=== PATIENT | male | born 1930 | race Asian ===

== ENCOUNTER 2018-07-03 17:46 | Inpatient (IN) | payer OTHER, MEDICAID ==
[~2018-07-03] VITALS: Ht 172.7 cm; Wt 49.0 kg
[2018-07-03 17:59] VITALS: Ht 172.7 cm; Wt 49.0 kg
[2018-07-03 19:28] LABS: microscopic required? YES; urine erythrocyte 3+ (NEGATIVE)
[2018-07-03 19:38] LABS: CALCIUM 7.8 mg/dL (8.5-10.1); CARBON DIOXIDE 31.3 mmol/L (21-32); CHLORIDE SERUM 94 mmol/L (98-107); CREATININE SERUM 0.8 mg/dL (0.7-1.3); GLUCOSE SERUM 110 mg/dL (74-106); POTASSIUM SERUM 4.3 mmol/L (3.5-5.1); SODIUM SERUM 127 mmol/L (136-145)
[2018-07-03 19:43] LABS: PLATELET COUNT 408 x10^3mcL (130-400)
[2018-07-03 19:51] LABS: ALBUMIN 2.4 g/dL (3.4-5.0); ALKALINE PHOSPHATASE 83 U/L (46-116); ALT/SGPT 18 U/L (16-63); AST/SGOT 21 U/L (15-37); BILIRUBIN TOTAL 1.61 mg/dL (0.20-1.00); FREE T4 2.05 ng/dL (0.76-1.46); LIPASE 139 IU/L (73-393); TOTAL PROTEIN, SERUM 5.9 g/dL (6.4-8.2)
[2018-07-03 20:29] LABS: BAND NEUTROPHIL 10 % (0-10); BASOPHIL 0 % (0-2); MONOCYTE 4 % (0-7); SEGMENTED NEUTROPHILS 84 % (37-75); rbc morphology (normal/abnorm) NORMAL (NORMAL)
[2018-07-03 20:30] LABS: PLATELET MORPHOLOGY PLATELETS INCREASED
[2018-07-03 21:24] LABS: MAGNESIUM 1.7 mg/dL (1.8-2.4); PHOSPHOROUS 3.2 mg/dL (2.5-4.9)
[2018-07-03 21:34] LABS: T3 TOTAL 0.57 ng/mL
[2018-07-03 21:36] LABS: FREE T4 2.1 ng/dL (0.76-1.46); FREE THYROXINE INDEX 4.1 ug/dL (1.4-4.5); T4(THYROXINE) 8.7 ug/dL (4.7-13.3)
[2018-07-03] MEDS ORDERED: ALENDRONATE SOD70 M2 (22:34)
[2018-07-03] MEDS ORDERED: LIPI10 PO (22:34)
[2018-07-03] MEDS ORDERED: PULMICORT0.5 MG/2 M (22:35)
[2018-07-03] MEDS ORDERED: CLOPIDOGREL75 M1 PO (22:35)
[2018-07-03] MEDS ORDERED: FINASTERIDE5 M1 PO (22:35)
[2018-07-03] MEDS ORDERED: DIGOXIN0.125 M1 PO (22:35)
[2018-07-03] MEDS ORDERED: LOSARTAN POTASS25 M1 PO (22:35)
[2018-07-03] MEDS ORDERED: ASPIRIN ADULT L81 M5 PO (22:41)
[2018-07-03] MEDS ORDERED: LATANOPROST2.5 ML OU (22:44)
[2018-07-03] MEDS ORDERED: TAMSULOSIN HYD0.4 M1 PO (22:46)
[2018-07-03] MEDS ORDERED: XARELTO15 M1 PO (22:47)
[2018-07-03 23:49] VITALS: BP 153/75
[2018-07-04 01:32] VITALS: BP 153/75
[2018-07-04 05:46] VITALS: BP 136/59
[2018-07-04 07:35] LABS: PLATELET COUNT 357 x10^3mcL (130-400); RED CELL DISTRIBUTION WIDTH 12.9 % (11.5-14.5)
[2018-07-04 07:43] LABS: CALCIUM 7.3 mg/dL (8.5-10.1); CARBON DIOXIDE 26.7 mmol/L (21-32); CHLORIDE SERUM 99 mmol/L (98-107); CREATININE SERUM 0.5 mg/dL (0.7-1.3); GLUCOSE SERUM 95 mg/dL (74-106); MAGNESIUM 1.6 mg/dL (1.8-2.4); POTASSIUM SERUM 3.7 mmol/L (3.5-5.1); SODIUM SERUM 132 mmol/L (136-145)
[2018-07-04 08:39] VITALS: BP 155/68
[2018-07-04 12:56] LABS: BAND NEUTROPHIL 1 % (0-10); BASOPHIL 0 % (0-2); MONOCYTE 2 % (0-7); SEGMENTED NEUTROPHILS 97 % (37-75)
[2018-07-04 12:57] LABS: PLATELET MORPHOLOGY PLATELETS NORMAL; rbc morphology (normal/abnorm) NORMAL (NORMAL)
[2018-07-04 13:07] VITALS: BP 137/70
[2018-07-04 16:40] VITALS: BP 138/66
[2018-07-04 20:56] VITALS: BP 146/68
[2018-07-05 06:25] VITALS: BP 150/77
[2018-07-05 08:05] LABS: BASOPHIL % 0.4 % (0-2); PLATELET COUNT 393 x10^3mcL (130-400); RED CELL DISTRIBUTION WIDTH 12.7 % (11.5-14.5)
[2018-07-05 08:09] VITALS: BP 146/72
[2018-07-05 08:24] LABS: CALCIUM 7.3 mg/dL (8.5-10.1); CARBON DIOXIDE 28.9 mmol/L (21-32); CHLORIDE SERUM 98 mmol/L (98-107); CREATININE SERUM 0.5 mg/dL (0.7-1.3); GLUCOSE SERUM 87 mg/dL (74-106); POTASSIUM SERUM 3.4 mmol/L (3.5-5.1); SODIUM SERUM 131 mmol/L (136-145)
[2018-07-05 12:25] VITALS: BP 137/62
[2018-07-05 16:30] VITALS: BP 136/68
[2018-07-05 19:39] VITALS: BP 155/74
[2018-07-06 05:15] VITALS: BP 160/83
[2018-07-06 05:20] VITALS: BP 140/78
[2018-07-06 06:12] LABS: PLATELET COUNT 378 x10^3mcL (130-400); RED CELL DISTRIBUTION WIDTH 13.1 % (11.5-14.5)
[2018-07-06 06:22] LABS: BASOPHIL % 0 % (0-2)
[2018-07-06 06:24] LABS: CALCIUM 7.6 mg/dL (8.5-10.1); CARBON DIOXIDE 30.5 mmol/L (21-32); CHLORIDE SERUM 97 mmol/L (98-107); CREATININE SERUM 0.4 mg/dL (0.7-1.3); GLUCOSE SERUM 97 mg/dL (74-106); POTASSIUM SERUM 3.3 mmol/L (3.5-5.1); SODIUM SERUM 133 mmol/L (136-145)
[2018-07-06 07:53] VITALS: BP 150/88
[2018-07-06 12:09] VITALS: BP 148/94
[2018-07-06 15:56] VITALS: BP 143/87
[2018-07-06 20:14] VITALS: BP 141/80
[2018-07-07 05:47] VITALS: BP 140/69
[2018-07-07 07:16] LABS: BASOPHIL % 0.3 % (0-2); PLATELET COUNT 387 x10^3mcL (130-400)
[2018-07-07 07:40] LABS: CALCIUM 7.6 mg/dL (8.5-10.1); CARBON DIOXIDE 29.5 mmol/L (21-32); CHLORIDE SERUM 98 mmol/L (98-107); CREATININE SERUM 0.5 mg/dL (0.7-1.3); GLUCOSE SERUM 95 mg/dL (74-106); MAGNESIUM 2.1 mg/dL (1.8-2.4); POTASSIUM SERUM 3.4 mmol/L (3.5-5.1); SODIUM SERUM 133 mmol/L (136-145)
[2018-07-07 08:00] VITALS: BP 173/97
[2018-07-07 10:00] VITALS: BP 145/61
[2018-07-07 18:12] VITALS: BP 185/86
[2018-07-07 18:47] VITALS: BP 134/69
[2018-07-07 20:42] VITALS: BP 139/70
[2018-07-08] VITALS (8 sets, daily range): BP systolic 111–167; BP diastolic 56–79
[2018-07-08 07:20] LABS: BASOPHIL % 0.2 % (0-2); PLATELET COUNT 354 x10^3mcL (130-400); RED CELL DISTRIBUTION WIDTH 13.2 % (11.5-14.5)
[2018-07-08 07:32] LABS: CALCIUM 7.9 mg/dL (8.5-10.1); CARBON DIOXIDE 28.5 mmol/L (21-32); CHLORIDE SERUM 98 mmol/L (98-107); CREATININE SERUM 0.5 mg/dL (0.7-1.3); GLUCOSE SERUM 75 mg/dL (74-106); POTASSIUM SERUM 3.3 mmol/L (3.5-5.1); SODIUM SERUM 134 mmol/L (136-145)
[2018-07-09] VITALS (7 sets, daily range): BP systolic 109–178; BP diastolic 57–80
[2018-07-09 06:28] LABS: CALCIUM 8.2 mg/dL (8.5-10.1); CARBON DIOXIDE 32.7 mmol/L (21-32); CHLORIDE SERUM 99 mmol/L (98-107); CREATININE SERUM 0.5 mg/dL (0.7-1.3); GLUCOSE SERUM 76 mg/dL (74-106); POTASSIUM SERUM 3.1 mmol/L (3.5-5.1); SODIUM SERUM 138 mmol/L (136-145)
[2018-07-09 06:41] LABS: BASOPHIL % 0.4 % (0-2); PLATELET COUNT 387 x10^3mcL (130-400); RED CELL DISTRIBUTION WIDTH 13.6 % (11.5-14.5)
[2018-07-10 05:35] VITALS: BP 154/72
[2018-07-10 09:00] VITALS: BP 158/82
[2018-07-10] MEDS ORDERED: AUG500 PO (10:28)
[2018-07-10] MEDS ORDERED: LEV500 PO (10:29)
[2018-07-10 12:00] VITALS: BP 138/71
[2018-07-10 13:36] VITALS: BP 138/71
== END 2018-07-10 15:44 | DRG 871 ==
LOC: ED 17:46 → DU 20:57
PROVIDERS: Emergency Medicine; Internal Medicine; ADMIT Internal Medicine
DX: A41.9 Sepsis, unspecified organism (principal); J69.0 Pneumonitis due to inhalation of food and vomit; N17.0 Acute kidney failure with tubular necrosis; E43 Unspecified severe protein-calorie malnutrition; E87.1 Hypo-osmolality and hyponatremia; I69.354 Hemiplegia and hemiparesis following cerebral infarction affecting left non-dominant side; Z68.1 Body mass index [BMI] 19.9 or less, adult; B95.2 Enterococcus as the cause of diseases classified elsewhere; N40.0 Benign prostatic hyperplasia without lower urinary tract symptoms; E78.5 Hyperlipidemia, unspecified; I48.91 Unspecified atrial fibrillation; Z79.82 Long term (current) use of aspirin; Z79.01 Long term (current) use of anticoagulants; Z95.5 Presence of coronary angioplasty implant and graft
CPT/HCPCS: 83880; 84439; 87804; 92526-GN; 92610; 97110-GP; 97116-GP; 97530-GP; J0360; J0456; J2060; J2543; J3370; J3475; J3480; J7030; J7040; J7050; J7620; J7626; Q0092

== ENCOUNTER 2018-07-22 04:36 | Inpatient (IN) | payer OTHER, MEDICAID ==
[2018-07-22] VITALS (7 sets, daily range): BP systolic 94–137; BP diastolic 48–63; Ht 175.3 cm; Wt 41.7 kg
[~2018-07-22] VITALS: Ht 175.3 cm; Wt 41.7 kg
[~2018-07-22 04:36] MED LIST: ALENDRONATE SOD70 M2; ASPIRIN ADULT L81 M5 PO; AUG500 PO; CLOPIDOGREL75 M1 PO; DIGOXIN0.125 M1 PO; FINASTERIDE5 M1 PO; LATANOPROST2.5 ML OU; LEV500 PO; LIPI10 PO; LOSARTAN POTASS25 M1 PO; PULMICORT0.5 MG/2 M; TAMSULOSIN HYD0.4 M1 PO; XARELTO15 M1 PO
--- NOTE | 2018-07-22 04:45 | NUR ---
PT PRESENTED TO ED VIA AMBULANCE FROM [facility] FOR SOB, TACHYCARDIA, AND HYPOXEMIA X 1 DAY. MEDIC STATES TRELLIS STAFF REPORTED PT FEVER. PER MEDIC PT RECENTLY DX WITH PNEUMONIA. PER MEDIC PT WAS DESATING TO 76 ON RA. UPON ARRIVAL TO ED PT PLACED ON 4L NC. PT IS AWAKE, ALERT, AND ORIENTED. ANSWERS APPROPRIATELY BUT VERY SOFT SPOKEN. PT APPEARS VERY THIN WITH VARIOUS AREAS OF ECCHYMOSIS NOTED TO BUE, BLE, AND TRUNK. BREATHING EVEN, SHALLOW, WITH NO APPARENT USE OF ACCESSORY MUSCLES. FAMILY AT BEDSIDE. MSE COMPLETED BY DR HAWK. WILL CONTINUE TO MONITOR.
--- NOTE | 2018-07-22 04:50 | NUR ---
LAB AT BEDSIDE.
--- NOTE | 2018-07-22 04:55 | NUR ---
XRAY AT BEDSIDE
[2018-07-22 05:16] LABS: BASOPHIL % 0.2 % (0-2)
[2018-07-22 05:17] LABS: RED CELL DISTRIBUTION WIDTH 15.2 % (11.5-14.5)
[2018-07-22 05:18] LABS: PLATELET COUNT 516 x10^3mcL (130-400)
[2018-07-22 05:37] LABS: CK-MB 0.6 ng/mL (0-3.6)
[2018-07-22 05:56] LABS: microscopic required? YES
[2018-07-22 05:57] LABS: urine erythrocyte TRACE (NEGATIVE)
[2018-07-22 05:58] LABS: CALCIUM 9.7 mg/dL (8.5-10.1); CHLORIDE SERUM 95 mmol/L (98-107); CREATININE SERUM 0.9 mg/dL (0.7-1.3); GLUCOSE SERUM 120 mg/dL (74-106); POTASSIUM SERUM 4.7 mmol/L (3.5-5.1); SODIUM SERUM 136 mmol/L (136-145)
[2018-07-22 06:04] LABS: ALKALINE PHOSPHATASE 93 U/L (46-116); ALT/SGPT 16 U/L (16-63); AST/SGOT 20 U/L (15-37); BILIRUBIN TOTAL 1.9 mg/dL (0.20-1.00)
[2018-07-22 06:05] LABS: ALBUMIN 3.3 g/dL (3.4-5.0)
--- NOTE | 2018-07-22 06:19 | NUR ---
REPORT CALLED TO LUCERO MARIE
--- NOTE | 2018-07-22 06:25 | NUR ---
PT TRANSFERED TO ROOM AT THIS TIME IN NAD. BREATHING EVEN AND UNLABORED BUT SHALLOW. PT AWAKE AND ALERT, FAMILY VERBALIZED UNDERSTANDING OF PLAN OF CARE. PT TRANSFERED VIA RBLANKA ACCOMPANIED BY ME MARIE AND EMT TYSON. FLUIDS ENDORSED TO LUCERO MARIE. BELONGINGS SENT WITH PT.
--- NOTE | 2018-07-22 06:30 | NUR ---
RECEIVED FROM ED VIA STRETCHER,PUT IN ROOM 240 B AND MADE COMFORTABLE.TELE 11 ST[address]SON AT BEDSIDE.
--- NOTE | 2018-07-22 06:49 | NUR ---
MRSA NARES COLLECTED,WILL SEND TO LAB.
--- NOTE | 2018-07-22 06:52 | NUR ---
PATIENT JUST SETTLED IN BED,SON IN LAW FRIDA WILL STAY FOR ADMIT NEXT SHIFT.
--- NOTE | 2018-07-22 07:01 | NUR ---
IVF JUST TKO NOW.WILL ENDORSE TO NEXT SHIFT TO BE ADMITTED.
--- NOTE | 2018-07-22 07:15 | NUR ---
RECEIVED PATIENT FROM FRANK BARKER, PATIENT NEW ADMIT. PATIENT IN BED AT THIS TIME, FACE MASK ON AT 5 LPM. NO COMPLAINTS AT THIS TIME, NO SIGNS OF PAIN. SON FRIDA AT BEDSIDE. CALL LIGHT IN REACH.
[2018-07-22 07:26] LABS: MAGNESIUM 1.7 mg/dL (1.8-2.4); PHOSPHOROUS 3.4 mg/dL (2.5-4.9)
[2018-07-22 07:33] LABS: CHOLESTEROL/HDL RATIO 1.9
[2018-07-22 08:23] LABS: FREE THYROXINE INDEX 3.3 ug/dL (1.4-4.5)
[2018-07-22 08:24] LABS: FREE T4 1.81 ng/dL (0.76-1.46)
--- NOTE | 2018-07-22 10:30 | NUR ---
RECEIVED AWAKE WITH HOB EELVATED AT 45 DEGREES. SKIN WARM AND DRY TO TOUCH . C/O BACK PAIN ON SCALE 3/10. PT CALIMED BEARABLE AT THIS TIME, NO NEED FOR PAIN MEDICATION INTERPRETED BY SPOUSE AT BEDSIDE. APPARENTLY WATCHINGM TV . PLACED CALL LIGHT WITHIN REACH, INSTRUCTED TO CALL FOR ANY ASSISTANCE NEEDED AND VERBALIZED UNDERSTANDING.
[2018-07-22 12:01] LABS: T3 TOTAL 0.73 ng/mL
--- NOTE | 2018-07-22 12:20 | NUR ---
PATIENT IN BED RESTING, DOING RESPIRATORY TREATMENT. NO SIGNS OF SOB OR PAIN. FAMILY AT BEDSIDE, EXPLAINED USE OF FURTHER ANTIBIOTICS. CALL LIGHT IN REACH, WILL CONTINUE TO MONITOR.
--- NOTE | 2018-07-22 15:34 | NUR ---
PT TITRATED OFF SIMPLE MASK TO 3LNC. SPO2 ON 3NC 95%. PT IN NAD. WILL CONTINUE TO MONITOR. RN NOTIFIED.
--- NOTE | 2018-07-22 15:52 | NUR ---
PATIENT IN BED, W NO SIGNS OF SOB OR RESPIRATORY DISTRESS. SIDE PAIN HAS DIMINISHED FROM PRN TYLENOL 650 MG PO. CALL LIGHT IN REACH, FAMILY AT BEDSIDE.
--- NOTE | 2018-07-22 18:56 | NUR ---
PATIENT IN BED, NO SIGNS OF SOB. FAMILY AT BEDSIDE, WILL ENDORSE TO ONCOMING NURSE. CALL LIGHT IN REACH.
--- NOTE | 2018-07-22 19:30 | NUR ---
RECEIVED WITH HOB ELEVATED AT 45 DEGREES. SKIN WARM AND DRY TO TOUCH. RESPIRATION EVEN AND UNLABORED. WITH INTERMITTENT BACK PAIN , WITH 3/10 PAIN LEVEL , CLAIMED BEARABLE AT THIS TIME. PAIN MEDICATION WAS ADMINISTERED at around 1800. ON TELE #[address] AT 120/MIN. DENIES ANY CHEST PAIN/DISCOMFORT. WILL CONTINUE TO MONITOR.
--- NOTE | 2018-07-22 22:00 | NUR ---
ALL DUE MEDICATIONS GIVENAND WELL TOLERATED. ALL PO MEDICATIONS CRUSHED AND MIX WITH APPLE SAUCE, APPARENTLY PT TOLERATED PROCEDURE WELL.
[2018-07-23] VITALS: BP 106/54
--- NOTE | 2018-07-23 | NUR ---
CONTINUES ON ATB IVPB WITHOUT ADVERSE REACTION NOTED. TOLERATED PUDDING , NO S/S OF ASPIRATION NOTED. TURNED AND RESPOSITIONED Q 2HRS WITH TOTAL ASSIST.
--- NOTE | 2018-07-23 03:15 | NUR ---
PT SLEEPING. VISUAL CHECKED AT INTERVALS. BED IN LOWEST POSITION. HOB ELEVATED AT 45 DEGREES AT ALL TIMES.
[2018-07-23 05:15] VITALS: BP 108/51
--- NOTE | 2018-07-23 06:04 | NUR ---
INCONTIENT OF BLADDER FUCNTION. PARTIAL BED BATH GIVEN. CONTINUES MARTINA TB IVPB FOR MANAGEMENT OF PNEUMONIA. NO ADVERSE REACTION NOTED. KEPT CLEAN AND DRY. ALL NEEDS ATTENDED.
[2018-07-23 06:59] LABS: BASOPHIL % 0.2 % (0-2); PLATELET COUNT 326 x10^3mcL (130-400)
--- NOTE | 2018-07-23 07:15 | NUR ---
AAO X1-2 SLOW TO ANSWER.NO SIGNS OF PAIN/DISCOMFORT.LUNG SOUND DIM ON THE BASES.ON SR-ST ON THE MONITPR.IV SALINE LOCKED.Q 2 HOUR TURN IMPLEMENTED.CALL LIGHT WITHIN REACH.FREQUENT CHECKS IMPLEMENTED.WILL CONTINUE TO MONITOR PT.
[2018-07-23 07:40] LABS: CALCIUM 8.2 mg/dL (8.5-10.1); CARBON DIOXIDE 30.1 mmol/L (21-32); CHLORIDE SERUM 102 mmol/L (98-107); CREATININE SERUM 0.7 mg/dL (0.7-1.3); GLUCOSE SERUM 83 mg/dL (74-106); MAGNESIUM 1.8 mg/dL (1.8-2.4); PHOSPHOROUS 2.8 mg/dL (2.5-4.9); POTASSIUM SERUM 3.6 mmol/L (3.5-5.1); SODIUM SERUM 137 mmol/L (136-145)
[2018-07-23 08:37] LABS: RED CELL DISTRIBUTION WIDTH 15.4 % (11.5-14.5)
[2018-07-23 09:43] VITALS: BP 111/51
--- NOTE | 2018-07-23 13:30 | NUR ---
INFORMED SON IN LAW THAT RN WENT TO HAVE EYEDROP VERIFIED BY THE PHARMACIST. PER PHARMACY NEEDED THE ACTUAL LABEL OF THE MEDICINE. SON IN LAW WILL BRING THE LABEL FROM HOME.
[2018-07-23 14:10] VITALS: BP 111/54
--- NOTE | 2018-07-23 15:50 | NUR ---
PT WAS SEEN FOR DYSPHAGIA. PT WAS ABLE TO SAFELY SWALLOW PUREE DIET WITH HONEY THICK LIQUID. PT HAD DELAY IN SWALLOW AND MIGHT BE AT RISK OF ASPIRATION RECOMMENDATION BARRIUM SWALLOW STUDY. PUREE DIET WITH HONEY THICK LIQUID.
--- NOTE | 2018-07-23 15:50 | NUR ---
SPEECH THERAPIST CAME TO SEE PT.INFORMED RN TO KEEP PT ON PUREED DIET AND NECTAR THICK LIQUIDS.ALSO TO ORDER BARIUM SWLLOW TOMORROW.TALKED TO INFORMED HER OF WHAT THE SPEECH THERAPIST SUGGESTED. WILL ORDER BARIUM SWALLOW FOR TOMORROW
[2018-07-23 17:23] VITALS: BP 100/49
--- NOTE | 2018-07-23 18:00 | NUR ---
IV LEAKING.REINSERTED 22 G ON LFA BY CHARGE NURSE ARIANA.
--- NOTE | 2018-07-23 18:20 | NUR ---
CLEANED PT.NOTED SOME ECCHYMOSIS ON BUTTOCKS.APPLIED Z-GUARD AND PUT AIR MATRESS.
--- NOTE | 2018-07-23 18:39 | NUR ---
NO SIGNIFICANT CHANGE NOTED.WILL ENDORSE TO NEXT SHIFT.
--- NOTE | 2018-07-23 19:51 | NUR ---
PT A/A/O X2, FAMILY AT BEDSIDE. PT DENIES DIZZINESS AND HEADACHE. BREATH SOUNDS DIMINISHED LEFT SIDE. BREATHING EVEN AND UNLABORED ON 4L NC, SPO2 94%. DENIES CHEST PAIN AND PRESSURE. BOWEL SOUNDS ACTIVE. NO C/O N/V AND ABD PAIN. IV SALINE LOCK ON THE LEFT FOREARM. ON AIR MATTRESS. MADE PT COMFORTABLE. PLACED CALL LIGHT WITH IN REACH. WILL CONTINUE TO MONITOR.
[2018-07-23 19:57] VITALS: BP 121/64
--- NOTE | 2018-07-24 00:57 | NUR ---
PT RESTING WITH EYES CLOSED. NO DISTRESS AND DISCOMFORT NOTED. WILL CONTINUE TO MONITOR.
[2018-07-24 04:55] VITALS: BP 134/65
--- NOTE | 2018-07-24 06:45 | NUR ---
PT QUIET AND RESTING. NO SIGNIFICANT CHANGES NOTED. WILL CONTINUE TO MONITOR.
[2018-07-24 06:59] LABS: BASOPHIL % 0.1 % (0-2); PLATELET COUNT 365 x10^3mcL (130-400)
[2018-07-24 07:13] LABS: RED CELL DISTRIBUTION WIDTH 15.2 % (11.5-14.5)
--- NOTE | 2018-07-24 07:30 | NUR ---
PT ENDORSE TO ME THIS MORNING LAYING IN BED RESTING, AA/O X2 . BREATHING EVEN AND UNLABORED ON ON 4L NC, NO ACUTE RESP DISTRESS OR SOB NOTED. RT PROTOCAL. TELE 11 ST, HR 105 NOTED, DENIES ANY CP OR PRESSURE. PULSES PRESENT, CURRENLY ON XARELTO FOR HX OF AFIB. PENDING A XR VIDEO SWALLOW SPEECH THIS AM. INCONT. LAST BM 07/22. FALL RISK DUE TO GEN WEAKNESS, AIR MATTRESS, HEEL PROTECTORS APPLIED TO BOTH FEET. IV TO THE LFA INTACT AND PATENT. HEPLOCKED. NO REDNESS OR SWELLING NOTED. CALL LIGHT IN REACH. BED IN LOW POSITION. BED ALARM ON. WILL CONTINUE PLAN OF CARE.
[2018-07-24 07:48] LABS: CALCIUM 8.2 mg/dL (8.5-10.1); CARBON DIOXIDE 29.9 mmol/L (21-32); CHLORIDE SERUM 102 mmol/L (98-107); CREATININE SERUM 0.6 mg/dL (0.7-1.3); GLUCOSE SERUM 87 mg/dL (74-106); PHOSPHOROUS 2.5 mg/dL (2.5-4.9); POTASSIUM SERUM 3.5 mmol/L (3.5-5.1); SODIUM SERUM 139 mmol/L (136-145)
[2018-07-24 09:16] VITALS: BP 114/88
[2018-07-24 09:28] VITALS: BP 138/86
--- NOTE | 2018-07-24 12:30 | NUR ---
SPOKE TO SAURAV GOMEZ [facility] [place], [place] TO EPHRAIM LAZAR IV
--- NOTE | 2018-07-24 14:22 | NUR ---
Initial Nutrition Assessment- 240T/B SI, RUSSELL IA HR Dx: Pneumonia PMHx: CVA, HTN, HLD, Afib, BPH PSHx: PCI Labs: (07/24) creat 0.6L, CA 8.2L, WBC 12.3H Meds: Lipitor, mucinex, zofran Diet: Puree diet/ nectar thick liquids PO Intake: (07/23) lunch: 75%, breakfast 50%, Ht: 175.26 cm (69") Wt: 41.73 kg (92#) BMI: 13.6 kg/m2 IBW: 178# (81 KG) %IBW: 52 UBW: unable to access Age: 87/M Food Allergies: NKFA Skin: ecchymosis to BUE Yordan: 14 Edema: none GI: Last BM: 07/21/18 Per H&P, Pt is a 87 year old male with past medical history CVA, Afib, HTN, HLD, BPH presents to the ED from group home with shortness of breath x 1 day. Pt was recently admitted two weeks ago for aspiration pneumonia and discharged to group home for continued care. RDN visit (07/24): Pt's daughter and answered questions since pt was busy with other healthcare professional. Pt's has questions about the current diet order which were clarified. Dietary recommendations were discussed and explained to pt's daughter. She verbalized understanding and did not have any questions at this time. Problem with: N: no V: no D: no C: no Problems with: Chewing/Swallowing: yes Current appetite: good Recent wt change: weighed 48.5 kg (07/09) %wt change: 14% x 2 weeks (significant) Vitamin/Supplement use: unknown Special diet at home: unknown Physical activity: none Education: Concept of puree/nectar thick liquid' diet order was explained to family. Estimated Nutritional Needs Based on ideal body weight 81 kg Energy: 4276-3115 kcal/d (30-35 kcal/kg- weight gain) Protein: 81-97 g/d (1.0-1.2g/kg)- geriatric maintenance and preservation of lean body mass Fluid: 6283-1132 ml/d (1 ml/kcal-fluid balance) or per doctor Nutrition Diagnosis 1. Malnutrition related to inadequate calorie/protein intake, frequent hospitalizations as evidenced by BMI 13.6 kg/m2. Intervention 1. Continue Puree/ [place] thick liquid diet. 2.Recommend Enusre Enlive TID along with thickener packets( to obtain nectar thick liquid consistency.) Monitor/Evaluate Goal: PO intake at least 75% of estimated needs Monitor: PO intake, Labs, GI function F/U in 3-5 days as moderate risk 5/2-07/29
--- NOTE | 2018-07-24 14:24 | NUR ---
1. Continue Puree/ [place] thick liquid diet. 2.Recommend Enusre Enlive TID along with thickener packets( to obtain nectar thick liquid consistency.)
--- NOTE | 2018-07-24 15:00 | NUR ---
ACCOMPANIED PATIENT TO FLUORO ROOM FOR VIDEO SWALLOW EXAM. SPO2=94% ON FIO2=4L/NC, BP 158/74, HEART RATE 100-104. EUPNEIC AT REST WITH HOB LOW MCKEE'S POSITION.
--- NOTE | 2018-07-24 15:16 | NUR ---
PT WAS SEEN FOR DYSPHAGIA SWALLOW STUDY. PT HAD MILD ASPIRATION FOR NTL. PT WAS ABLE TO SAFELY SWALLOW PUREE DIET WITH HONEY THICK LIQUID. DELAY IN SWALLOW WAS OBSERVED. RECOMMENDATION PUREE DIET WITH HONEY THICK LIQUID. SMALL BITES AND SIPS ONLY.
[2018-07-24 15:23] VITALS: BP 127/65
--- NOTE | 2018-07-24 16:59 | NUR ---
PT LAYING IN BED RESTING. REMAINS ON 4L NC, SATING AT 93-94% NO ACUTE RESP DISTRESS OR SOB NOTED. BY HIS SIDE. CALL LIGHT IN REACH. BED IN LOW POSITION. WILL CONTINUE PLAN OF CARE.
[2018-07-24 17:48] VITALS: BP 144/77
--- NOTE | 2018-07-24 17:51 | NUR ---
PT DAUGHTER CALLED, EXPLAINED THE NEW RECOMMENDATION DIET/ SHE AGREED.
--- NOTE | 2018-07-24 18:24 | NUR ---
NO ACUTE CHANGES AT THIS TIME. NO ACUTE RESP DISTRESS OR SOB NOTED/ REMAINS ON 4L NC SATING AT 93 %/ CURRENTLY AT A 90 DEG, ASSISTING IN FEEDING/ REEXPALINED THE IMPORTANCE OF FEEDING PT VERY SLOWLY WITH SMALL SIPS AND BITES, AND DAUGHTER BOTH AGREED. IV TO THE LFA INTACT AND PATENT/ HEPLOCKED, NO REDNESS OR SWELLING NOTED. WILL ENDORSE TO INCOMING RN.
--- NOTE | 2018-07-24 20:00 | NUR ---
RECEIVED PT IN BED, ALERT AND ORIENTED. ABLE TO FOLLOW SOME COMMANDS. FAMILY AT THE BEDSIDE. RESP. EVEN AND UNLABORED. 02 AT 4L/MIN VIA NC, SOUMYA. WELL. SAT. 96% AT THIS TIME. ST , HR 102 AT THIS TIME. DENIES CP OR ANY DISCOMFORT AT THIS TIME. HL TO LFA, INTACT AND PATENT. ON AIR MATTRESS, WITH BLANCHABLE REDNESS TO BUTTOCKS, TURNED AND REPOSITIONED FOR COMFORT, Z GUARD APPLIED. CALL LIGHT WITHIN REACH. WILL CONTINUE TO MONITOR.
[2018-07-24 21:06] VITALS: BP 138/73
--- NOTE | 2018-07-25 03:08 | NUR ---
RESTING QUIETLY IN BED WITH EYES CLOSED, APPEARS ASLEEP. EASILY AROUSABLE. RESP. EVEN AND UNLABORED. [address], SOUMYA. WELL. HOB ELEVATED. NO ACUTE DISTRESS NOTED.CALL LIGHT WITHIN REACH. WILL CONTINUE TO MONITOR.
--- NOTE | 2018-07-25 06:03 | NUR ---
AFEBRILE AND VITAL SIGNS STABLE. RESP. EVEN AND UNLABORED. [address], NO ACUTE DISTRESS NOTED. NO SIGNIFICANT CHANGE NOTED IN PT,S CONDITION. DUE MEDS GIVEN ORDERED, SOUMYA. WELL. INCONT. OF URINE, CLEANED AND KEPT COMFORTABLE.NO COMPLAINTS NOTED. ALL NEEDS ATTENDED TO . WILL CONTINUE TO MONITOR.
[2018-07-25 06:05] VITALS: BP 134/76
[2018-07-25 06:21] LABS: BASOPHIL % 0.4 % (0-2)
[2018-07-25 06:37] LABS: PLATELET COUNT 402 x10^3mcL (130-400); RED CELL DISTRIBUTION WIDTH 15.8 % (11.5-14.5)
--- NOTE | 2018-07-25 07:30 | NUR ---
PT ENDORSE TO ME THIS MORNING. LAYING IN BED RESTING AT 40 DEG. REMAINS ON 4 LNC, NO ACUTE RESP DISTRESS OR SOB NOTED/ LUNGS DIM TO LEFT SIDE. PT SUCTIONS SELF WHEN NEEDED. AA/O X3/ IS ABLE TO FOLLOW SIMPLE COMMANDS. TELE 11 NSR HR 97. PULSES PRESENT, NO EDEMA NOTED. BOWEL SOUNDS ACTIVE IN ALL FOUR QUADS. INCONT. BED BOUND, REMAINS ON AIR MATTRESS, TURN Q 2 HRS. BLANCHABLE TO BUTTOCKS, APPLYING ZG, DARRYN. IV TO THE LFA INTACT AND PATENT. NO REDNESS OR SWELLING NOTED. CALL LIGHT IN REACH. BED IN LOW POSITION. WILL CONTINUE TO MONITOR.
[2018-07-25 09:36] VITALS: BP 118/58
[2018-07-25 13:47] VITALS: BP 110/54
--- NOTE | 2018-07-25 14:00 | NUR ---
PT SITTING UP IN BED AT 90 DEG / TOLERATED 40% OF HIS LUNCH. NO ACUTE RESP DISTRESS OR SOB NOTED/ DENIES ANY CP OR DISCOMFORT. WILL CONTINUE TO MONITOR.
--- NOTE | 2018-07-25 16:12 | NUR ---
PHYSICAL THERAPY DAILY NOTES CO-SIGN All documentation done by the Director [employer] for 07/25/18 has been reviewed. I agree with the documentation. Reviewed/Co-Signed by: Lindsay Frausto PT Documentation Done by:JUSTINA ESPOSITO PTA
[2018-07-25 16:37] VITALS: BP 129/61
--- NOTE | 2018-07-25 18:10 | NUR ---
FAMILY AT BEDSIDE. PT SITTING UP IN BED RESTING/ REMAINS AT 90 DEG POSITION. NO ACUTE RESP DISTRESS OR SOB NOTED, REMAINS ON 4L NC SATING AT 94-98 %. DENIES ANY CP OR PRESSSURE AT THIS TIME. EDUCATED THE FAMILY THE IMPORTANCE AND FEEDING PT VERY SLOW, SMALL BITS AND SIPS WITH ADDED THICKEND, THEY AGREEDED. WILL CONTINUE TO MONITOR.
--- NOTE | 2018-07-25 18:36 | NUR ---
NO ACUTE CHANGES AT THIS TIME. NO ACUTE RESP DISTRESS OR SOB NOTED. FAMILY AT BEDSIDE. IV TO THE LFA INTACT AND PATENT/ HEPLOCKED/ NO REDNESS OR SWELLING NOTED. WILL ENDORSE TO INCOMING RN.
--- NOTE | 2018-07-25 20:00 | NUR ---
RECEIVED PT IN BED, RESTING IN BED, ALERT AND ORIENTED. FAMILY AT THE BEDSIDE. [place] , ABLE TO FOLLOW COMMANDS. RESP. EVEN AND UNLABORED, 02 AT 4L/MIN VIA NC, SAT. WELL. HOB ELEVATED. NO ACUTE DISTRESS NOTED. AFEBRILE AND VITAL SIGNS STABLE. ST ON THE MONITOR, DENIES CP OR ANY DISCOMFORT AT THIS TIME. INCONT. OF URINE, CLEANED AND KEPT COMFORTABLE. HL INTACT AND PATENT. CALL LIGHT WITHIN REACH. WILL CONTINUE TO MONITOR.
[2018-07-25 20:24] VITALS: BP 132/63
--- NOTE | 2018-07-26 01:00 | NUR ---
INCONT. OF SOFT MED. STOOL,CLEANED AND REPOSITIONED FOR COMFORT. CALL LIGHT WITHIN REACH. WILL CONTINUE TO MONITOR.
--- NOTE | 2018-07-26 03:40 | NUR ---
EYES CLOSED, APPEARS ASLEEP, EASILY AROUSABLE. [address], RESP. EVEN AND UNLABORED. NO ACUTE DISTRESS NOTED. WILL CONTINUE TO MONITOR.
[2018-07-26 05:31] VITALS: BP 124/50
--- NOTE | 2018-07-26 06:26 | NUR ---
AFEBRILE AND VITAL SIGNS STABLE.RESP. EVEN AND UNLABORED. [address], SOUMYA. WELL. NO SOB OR DISTRESS NOTED. DUE MEDS GIVEN ORDERED, SOUMYA. WELL. HL INTACT AND PATENT. TURNED AND REPOSITIONED Q2HRS AND PRN.ALL NEEDS ATTENDED TO. WILL ENDORSE TO INCOMING NURSE.
[2018-07-26 08:52] VITALS: BP 122/64
--- NOTE | 2018-07-26 09:40 | NUR ---
AAO. DTR PRESENT, SUPPORTIVE. TELE # 11 SR. LUNGS DIMINISHED SOUNDING BILATERALLY. O2 SAT ON 3L NC 98% BS'S ACTIVE TIMES 4. PERIPHERAL PULSES PALPABLE. NO EDEMA. SKIN CDI, ANAL AREA WITH ERYTHEMA THAT IS BLANCHEABLE, INCONTINENT OF URINE AND WE ARE APPLYING Z GUARD. IV SITE LFA CDI. ON AIR MATTRESS. TURNING Q 2 HOURS. WITH HEEL PROTECTORS AND A PAD AT THE END OF BED TO PREVENT FOOT DROP.
--- NOTE | 2018-07-26 10:27 | NUR ---
HEEL LINING PASTER MAVERICK MCCULLOUGH AWARE THAT THE DIG IS BEING HELD UNTIL THE DIGOXIN LAB LEVEL RESULTS ARE AVAILABLE. ALSO SHE IS AWARE THAT THE MUCINEX WAS HELD, DUE TO THE PATIENT NEEDING HER PILLS CRUSHED, AND MUCINEX CANT BE CRUSHED, SHE SAID TO JUST HOLD IT FOR NOW.
[2018-07-26] MEDS ORDERED: MERREM IV1 GM IV (10:38)
[2018-07-26 12:47] VITALS: BP 122/64
[2018-07-26 13:49] VITALS: BP 144/72
--- NOTE | 2018-07-26 15:20 | NUR ---
GAVE REPORT TO NURSE MERCEDES AT 1514. THE MEDICAL TRANSPORT WILL ARRIVE BETWEEN [phone]. THE DTR SIGNED THE DISCHARGE INSTRUCTIONS AND TRANSFER ACKNOWLEDGEMENT.
[2018-07-26 16:47] VITALS: BP 123/65
--- NOTE | 2018-07-27 07:30 | NUR ---
PHYSICAL THERAPY DAILY NOTES CO-SIGN All documentation done by the [employer] Assembler for 07/27/18 has been reviewed. I agree with the documentation. Reviewed/Co-Signed by: Lindsay Frausto PT Documentation Done by:JUSTINA ESPOSITO PTA FOR 07/26/18
== END 2018-07-26 16:50 | DRG 871 ==
LOC: ED 04:36 → DU 05:23
PROVIDERS: Emergency Medicine; ADMIT Internal Medicine
DX: A41.9 Sepsis, unspecified organism (principal); J96.01 Acute respiratory failure with hypoxia; J69.0 Pneumonitis due to inhalation of food and vomit; E43 Unspecified severe protein-calorie malnutrition; Z68.1 Body mass index [BMI] 19.9 or less, adult; I48.91 Unspecified atrial fibrillation; E11.9 Type 2 diabetes mellitus without complications; E83.42 Hypomagnesemia; N40.0 Benign prostatic hyperplasia without lower urinary tract symptoms; E78.5 Hyperlipidemia, unspecified; Z86.73 Personal history of transient ischemic attack (TIA), and cerebral infarction without residual deficits
CPT/HCPCS: 84439; 85378; 87804; 92526-GN; 92610; 97110-GP; 97530-GP; J1956; J2543; J3370; J7030; J7620; J7626

== ENCOUNTER 2018-08-07 02:54 | Inpatient (IN) | payer OTHER, MEDICAID ==
[~2018-08-07] VITALS: Ht 175.3 cm; Wt 39.9 kg
[~2018-08-07 02:54] MED LIST changes: +MERREM IV1 GM IV
[2018-08-07 03:01] VITALS: Ht 175.3 cm; Wt 39.9 kg
--- NOTE | 2018-08-07 03:10 | NUR ---
PT BIB AMBULANCE FROM [facility] FOR C/O SOB. PT WAS RECENTLY DISCHARGED WITH PNEUMONIA. PER AMS PT O2 SAT WAS AT 85 EVEN ON THE MASK FOR THEM. PT HAS HX OF COPD, HTN, DM, AND AFIB. PT HAS DEEP AND RETRACTING BREATHES, BUT EQUAL. PT IS VERY MALNOURISHED AND CAN SEE ALL OF HIS RIBS AND LEG AND ARM BONES. PT IS CONNECTED TO CARDIAC AND PLETH OX. PT PUT ON NONREBREATHER AT 15L AT THIS TIME. PT SEEMS TO BE MORE COMFORTABLE. WILL CONTINUE TO MONITOR. RT AT BEDSIDE FOR STANDBY
[2018-08-07 03:32] LABS: PLATELET COUNT 285 x10^3mcL (130-400)
[2018-08-07 03:33] LABS: BASOPHIL % 0 % (0-2); RED CELL DISTRIBUTION WIDTH 16.8 % (11.5-14.5)
--- NOTE | 2018-08-07 03:35 | NUR ---
RT AT BEDSIDE FOR ABG
--- NOTE | 2018-08-07 03:37 | NUR ---
SON IN LAW AT BEDSIDE
--- NOTE | 2018-08-07 03:42 | NUR ---
MD HAWK AT BEDSIDE TO DISCUSS PLAN OF CARE WITH PT SON IN LAW AND GATHER MORE INFORMATION
--- NOTE | 2018-08-07 03:46 | NUR ---
PT SEEMS TO HAVE STABILIZED AND IS SATING IN THE 92% ON THE NON REBREATHER. THIS IS AN IMPROVEMENT FOR HIM PER MD AND PER FAMILY. PT FAMILY STATES HE SEEMS MORE ALERT THAN HE WAS LAST TIME HE WAS HERE FOR PNEUMONIA A FEW WEEKS AGO.
[2018-08-07 03:59] LABS: CALCIUM 9.2 mg/dL (8.5-10.1); CARBON DIOXIDE 34.7 mmol/L (21-32); CHLORIDE SERUM 103 mmol/L (98-107); CREATININE SERUM 0.9 mg/dL (0.7-1.3); GLUCOSE SERUM 148 mg/dL (74-106); POTASSIUM SERUM 3.7 mmol/L (3.5-5.1); SODIUM SERUM 142 mmol/L (136-145)
[2018-08-07 04:00] LABS: CK-MB 0.6 ng/mL (0-3.6)
[2018-08-07 04:04] LABS: ALKALINE PHOSPHATASE 94 U/L (46-116); ALT/SGPT 21 U/L (16-63); AST/SGOT 17 U/L (15-37); TOTAL PROTEIN, SERUM 7.2 g/dL (6.4-8.2)
--- NOTE | 2018-08-07 04:10 | NUR ---
PLACED PATIENT ONTO BIPAP POST ABG RESULTS. SETTINGS: 12/30 RATE 14 FIO2 100%. SON IN LAW AT BEDSIDE. PATIENT APPEARS COMFORTABLE WITH MASK. HR 138 SPO2 92 ALARMS VERIFIED: HIGH P 40 LOW P 2 LOW VE 2 HIGH RATE 50 LOW RATE 4
[2018-08-07 04:11] LABS: ALBUMIN 2.7 g/dL (3.4-5.0)
--- NOTE | 2018-08-07 05:08 | NUR ---
PT SEEMS TO BE MORE COMFORTABLE AT THIS TIME. PT OXYGENATION HAS IMPROVED WITH BIPAP AND PT WORK OF BREATHING HAS DECREASED.
[2018-08-07] MEDS ORDERED: TRAMADOL HCL50 MG (05:31)
--- NOTE | 2018-08-07 05:36 | NUR ---
PER REQUEST TOOK PATIENT OFF BIPAP XRAY SHOWS A POSSIBLE LOWER LEFT LOBE PNEUMO AND PATIENT WILL GO TO CT FOR A SCAN. PLACED PATIENT ONTO NONREBREATHER MASK. SPO2 92 HEART RATE 122.
--- NOTE | 2018-08-07 05:50 | NUR ---
PT TAKEN OFF OF BIPAP. PT NOW PLACED ON NON REBREATHER AT 8L
--- NOTE | 2018-08-07 05:59 | NUR ---
PT CLEANED AND CHANGED WELL PHOTO TAKEN OF WOUND ON COCCYX AREA. REDNESS AND BREAKDOWN VISIBLE. WOUND PHOTO PLACED IN PT CHART
--- NOTE | 2018-08-07 06:09 | NUR ---
PT RETURNED FROM CT
--- NOTE | 2018-08-07 07:15 | NUR ---
REPORT RECEIVED FROM PAULA MARIE.
--- NOTE | 2018-08-07 07:15 | NUR ---
REPORT GIVEN TO DENNISE MARIE
--- NOTE | 2018-08-07 07:32 | NUR ---
REPORT GIVEN TO JANE MARIE RESUMING CARE OF PT IN TELE FLOOR
--- NOTE | 2018-08-07 07:50 | NUR ---
PT TRANSPORTED TO TELE FLOOR VIA GURNEY ON PORTABLE CM ON 02 AT 4L. TYRA MARIE RESUMED CARE OF PT PTS SON IN LAW ACCOMPANIED PT. PT DC'D FROM ED AT THIS TIME IV SITE PATENT NO SIGN OF INFILTRATION NOTED.
--- NOTE | 2018-08-07 08:00 | NUR ---
RECEIVED PT FROM ED WITH CC SOB AND HYPOXIA. PT AAOX3, NON-VERBAL. HX CVA WITH LEFT SIDED WEAKNESS. RESP EVEN, SHALLOW ON 4L VIA NC, O2 SAT 90%. OXYGEN INCREASED TO 5L AND O2 SAT WENT UP TO 94%. PT WITH PRODUCTIVE COUGH, CLEAR PHLEGHM. PT DENIES PAIN. BLL DIMINISHED. BOWEL SOUNDS ACTIVE, SOFT, FLAT. PER SON-IN-LAW, PT'S LAST BM 08/06/18 AND LAST MEAL 08/06/18 DINNER TIME WITH POOR APPETITE. ASPIRATION PRECAUTIONS IN PLACE. IV TO R HAND, NO REDNESS OR SWELLING. GEN WEAKNESS, PT PLACED ON AIR MATTRESS AND TO BE TURNED Q2H. OPEN WOUND NOTED TO SACRAL AREA, Z-GUARD AND OPTIFOAM APPLIED. HOB ELEVATED. PT AND SON-IN-LAW ORIENTED TO ROOM AND SURROUNDINGS. BED IN LOW POSITION, CALL LIGHT WITHIN REACH. WILL CONTINUE TO MONITOR.
[2018-08-07 10:24] VITALS: BP 141/80
--- NOTE | 2018-08-07 11:50 | NUR ---
IV TO R HAND LEAKING, DC'D WITH CATHETER INTACT. NEW IV STARTED ON RFA 22G, FLUSHED WITH 10 ML NS.
[2018-08-07 13:31] VITALS: BP 125/63
[2018-08-07 15:06] LABS: UA SPECIFIC GRAVITY >=1.030 (1.005-1.035); microscopic required? YES; urine erythrocyte 2+ (NEGATIVE)
--- NOTE | 2018-08-07 15:19 | NUR ---
PT WAS SEEN FOR DYSPHAGIA. PT HAD BREATHINNG PATTERN CHANGE FOR HONEY THICK LIQUID AND PUREE DIET INDICATING S/S OF ASPIRATION. [facility] SWALLOW STUDEY IS RECOMMENDED.
[2018-08-07 15:28] VITALS: BP 125/63
--- NOTE | 2018-08-07 17:54 | NUR ---
PT IN NO ACUTE DISTRESS. RESP EVEN AND UNLABORED ON 5L NC. IVF INFUSING, NO REDNESS OR SWELLING TO IV SITE. HOB ELEVATED AT ALL TIMES. AT BEDSIDE. ON AIR MATTRESS. CALL LIGHT WITHIN REACH. WILL CONTINUE TO MONITOR.
[2018-08-07 18:06] VITALS: BP 114/59
--- NOTE | 2018-08-07 18:32 | NUR ---
TITRATED O2 TO 3L NC. SPO2:96%. NO ACUTE RESP DISTRESS NOTED. WILL CONT.TO MONITOR
--- NOTE | 2018-08-07 18:54 | NUR ---
PT RESTING IN BED. NO ACUTE DISTRESS. BREATHING EVEN AND UNLABORED ON 3L NC. NO C/O PAIN. TURNED Q2H. ON AIR MATTRESS. IVF INFUSING, NO REDNESS OR SWELLING NOTED. AT BEDSIDE. HOB ELEVATED. BED IN LOW POSITION, CALL LIGHT WITHIN REACH. WILL ENDORSE TO ONCOMING SHIFT.
--- NOTE | 2018-08-07 19:50 | NUR ---
RECEIVED PT FROM DAY SHIFT RN. PT AWAKE ALERT AND ORIENTED X3 PER FAMILY, LANGUAGE BARRIER. BREATHING EVEN AND UNLABORED, NC 3L/MIN NO SOB NOTED. HEAD OF BED ELEVATED. RT PROTOCOL. GENERALIZED WEAKNESS. ABD SOFT AND ROUND, ACTIVE BOWEL SOUNDS, DENIES ABD PAIN N/V. SACRUM WOUND COVERED WITH DRESSING, CDI. BILATERAL HEEL PROTECTORS IN PLACE. IV RFA PATENT, INFUSING WELL. FAMILY AT BEDSIDE. CALL BUTTON WITHIN REACH. REPOSITIONED PT AT THIS TIME. WILL CONTINUE TO MONITOR.
[2018-08-07 20:36] VITALS: BP 149/80
--- NOTE | 2018-08-08 | NUR ---
PT RESTING, BREATHING EVEN AND UNLABORED WITH NO SIGNS OF DISTRESS NTOED. IV PATENT, INFUSING WELL. SAFETY PRECAUTIONS IN PLACE. CALL BUTTON WITHIN REACH. WILL CONTINUE TO MONITOR.
--- NOTE | 2018-08-08 01:55 | NUR ---
PT RESTING, BREATHING EVEN AND UNLABORED NC 3L/MIN WITH NO SIGNS OF DISTRESS NTOED. IV PATENT, INFUSING WELL. SAFETY PRECAUTIONS IN PLACE. CALL BUTTON WITHIN REACH. WILL CONTINUE TO MONITOR.
--- NOTE | 2018-08-08 04:59 | NUR ---
PT SLEPT MOST OF THE NIGHT WITH NO SIGNS OF DISTRESS NOTED. NC 3L/MIN NO SOB NOTED, RT PROTOCOL. IV PATENT AND INFUSING WELL WITH NO SIGNS OF INFILTRATION. MEDICATED PER EMAR. PT DENIES ANY PAIN OR DISCOMFORT. REPOSITIONED EVERY TWO HOURS. CALL BUTTON WITHIN REACH. ASPIRATION PRECAUTIONS IN PLACE. SAFETY PRECAUTIONS IN PLACE. WILL CONTINUE TO MONITOR AND ENDORSE CARE TO DAY SHIFT RN.
[2018-08-08 05:19] VITALS: BP 156/81
[2018-08-08 07:29] LABS: PLATELET COUNT 274 x10^3mcL (130-400)
--- NOTE | 2018-08-08 07:29 | NUR ---
PT AWAKE NO SIGNS OF DISTRESS NOTED. ENDORSED CARE TO DAY SHIFT RN, ALL QUESTIONS ADDRESSED.
[2018-08-08 07:39] LABS: CALCIUM 8.4 mg/dL (8.5-10.1); CARBON DIOXIDE 29.7 mmol/L (21-32); CHLORIDE SERUM 111 mmol/L (98-107); CREATININE SERUM 0.6 mg/dL (0.7-1.3); GLUCOSE SERUM 70 mg/dL (74-106); POTASSIUM SERUM 3.2 mmol/L (3.5-5.1); SODIUM SERUM 150 mmol/L (136-145)
[2018-08-08 07:47] LABS: BASOPHIL % 0 % (0-2); RED CELL DISTRIBUTION WIDTH 16.4 % (11.5-14.5)
[2018-08-08 08:22] VITALS: BP 160/91
--- NOTE | 2018-08-08 09:18 | NUR ---
TITRATED O2 TO 5L NC. SPO2:99%. NO ACUTE RESP DISTRESS NOTED. WILL CONT.TO MONITOR
[2018-08-08 12:01] VITALS: BP 150/82
--- NOTE | 2018-08-08 12:30 | NUR ---
PT RESTING IN BED, AOX4, RESP EVEN AND UNLABORED ON NC AT 6L/MIN. NO ACUTE DISTRESS NOTED AT THIS TIME. HOB ELEVATED 30 DEGREES, BED IN LOWEST POSITION AND CALL LIGHT WITHIN REACH. FAMILY AT BEDSIDE. WILL CONTINUE TO MONITOR.
--- NOTE | 2018-08-08 12:48 | NUR ---
WOUND CARE EVALUATION NOTE: REASON FOR EVALUATION: LOW LANEY SCORE AND BUTTOCKS WOUND CLARIFICATION: NO PRESSURE ULCER TO SACRALCOCCYX AREA. SKIN ASSESSMENT DONE WITH THIS 87 Y/O MALE PT ADMITTED FROM HOME TO [facility] WITH INITIAL DX SOB. PAST MEDICAL HX INCLUDES HTN, COPD, A FIB, HTN, HLD, BPH AND RECENT CVA WITH LEST SIDE WEAKNESS. ALL ABOVE INFORMATION OBTAINED FROM ADMISSION H&P AND DAUGHTER. PT IS AWAKE. SKIN IS WARM AND DRY, BLE NO HAIR GROWTH, NO EDEMA. DORSAL PEDAL PULSES PRESENT AND NORMAL. CAPILLARY REFILLED < 2 SEC. X 10 TOES. INCONTINENT OF BOWEL AND BLADDER. PLAN OF CARE DISCUSSED WITH PRIMARY RN, PT, AND DAUGHTER. ALL VERBALIZES UNDERSTANDING. INTEGUMENTARY: -INCOTINENT ASSOCIATE DERMATITIS (IAD): INNER BUTTOCKS EXTENDED TO SACRALCOCCYX -PRESSUREINJURY SACRALCOCCYA STAGE 1 -BLANCHABLE REDNESS TO R/L HEELS, SKIN INTACT RECOMMENDATIONS: -KEEP SKIN DRY AND CLEAN AT ALL TIMES, PLEASE CHECK Q2H AND PRN FOR INCONTINENCY OF BOWEL AND BLADDER. - CLEANSE WITH WOUND CLEANSING SOLUTION AND APPLY Z GUARD TO INNER BUTTOCKS EXTENDED TO SACRALCOCCYX BID AND PRN IF SOILING -APPLY FORM DRESSING TO SACROCOCCY Q7 DAYS AND PRN IF SOILING PREVENTION -APPLY HEEL PROTECTOR TO RIGHT /LEFT HEELS AT ALL TIMES -OFFLOAD BILATERAL HEELS BY PLACING PILLOWS UNDER CALVES UNLESS OTHERWISE CONTRAINDICATED -PRESSURE REDISTRIBUTION SURFACE THERAPY -TURN AND REPOSITION Q2H, OFFLOAD SACRALCOCCYX AND BUTTOCKS BY TURNING RIGHT AND LEFT -CONTINUE TO FOLLOW RD RECOMMENDATIONS ALL ABOVE RECOMMENDATIONS DISCUSSED WITH PRIMARY RN. WILL FOLLOW UP PT Q7-10 DAYS. PLEASE CONTACT WOUND CARE NURSE FOR ANY QUESTION AND CHANGE OF WOUND CONDITION.
[2018-08-08 16:37] VITALS: BP 164/92
--- NOTE | 2018-08-08 17:23 | NUR ---
TITRATED O2 TO 4L NC. SPO2:96%. NO RESP ACUTE RESP DISTRESS NOTED. WILL MONITOR
--- NOTE | 2018-08-08 17:50 | NUR ---
PT RESTING IN BED, AOX4. WOUND CARE DONE AT THIS TIME. NONBLANCHABLE REDNESS TO SACRUM NOTED, PT DENIES PAIN. Z-GUARD AND OPTIFOAM APPLIED, DRESSING CDI. BILAT HEEL PROTECTORS IN PLACE. RESP EVEN AND UNLABORED ON NC AT 5L/MIN. IV TO RFA W/ NO SIGNS OF INFILTRATION, IVF INFUSING WELL. BED IN LOWEST POSITION AND CALL LIGHT WITHIN REACH. WILL ENDORSE TO ONCOMING NURSE.
--- NOTE | 2018-08-08 19:37 | NUR ---
RECEIVED PT FROM PREVIOUS SHIFT. PT SLEEPING, EASILY AWAKED WITH VERBAL STIMULI. NO S/S RESPIRATORY DISTRESS ON 5LNC. AT BEDSIDE. IV TO RFA PATENT, INFUSING NS AT 70 ML/HR WITH NO S/S OF INFILTRATION. CALL LIGHT WITHIN REACH, BED IN LOW POSITION. WILL CONTINUE TO MONITOR.
--- NOTE | 2018-08-08 19:46 | NUR ---
FAMILY REQUESTING TO SPEAK WITH DR GU REGARDING RESULTS OF SWALLOW EVAL. DR GU MADE AWARE, STATES SHE WILL BE IN TO SEE PATIENT. WILL CONTINUE TO MONITOR.
--- NOTE | 2018-08-08 19:57 | NUR ---
DR GU AT BEDSIDE. INFORMED FAMILY AND PATIENT THAT RESULTS OF SWALLOW EVAL ALLOW FOR PUREE DIET WITH THICKENED LIQUIDS. FAMILY VERBALIZED UNDERSTANDING. CALL LIGHT WITHIN REACH, BED IN LOW POSITION. WILL CONTINUE TO MONITOR.
[2018-08-08 21:14] VITALS: BP 162/85
--- NOTE | 2018-08-08 21:52 | NUR ---
BP 162/85. DR GU MADE AWARE. ORDER RECEIVED FOR HYDRALAIZINE PRN. PER FAMILY, PATIENT IS RESTLESS AND NEEDS TO BE CHANGED AND BP WILL LOWER ON ITS OWN. FAMILY AND PATIENT REQUESTING MED BE HELD UNTIL RECHECK OF BP ONCE PATIENT IS MADE COMFORTABLE. PT CHANGED AT THIS TIME. ALLOWING PT TO RELAX BEFORE RECHECKING BP AND WILL MEDICATE PRN PER EMAR IF BP CONTINUES TO BE ELEVATED.
[2018-08-08 22:19] VITALS: BP 157/75
[2018-08-09] VITALS (12 sets, daily range): BP systolic 89–192; BP diastolic 47–90
--- NOTE | 2018-08-09 00:11 | NUR ---
PT RESTING IN NO ACUTE DISTRESS. RR EVEN AND UNLABORED. PT REPOSITIONED AND MADE COMFORTABLE. IV PATENT, INFUSING WELL WITH NO S/S OF INFILTRATION. CALL LIGHT WITHIN REACH, BED IN LOW POSITION. WILL CONTINUE TO MONITOR.
--- NOTE | 2018-08-09 06:16 | NUR ---
BP 188/100. HYDRALAZINE GIVEN IVP SLOW PUSH OVER 2 MINUTES. WITNESSED AT BEDSIDE BY JENNIFER RED RN. IV PATENT, FLUSHING WELL. CALL LIGHT WITHIN REACH, BED IN LOW POSITION. WILL REASSESS BP AND CONTINUE TO MONITOR.
[2018-08-09 06:42] LABS: CALCIUM 8.6 mg/dL (8.5-10.1); CARBON DIOXIDE 26.3 mmol/L (21-32); CHLORIDE SERUM 113 mmol/L (98-107); CREATININE SERUM 0.6 mg/dL (0.7-1.3); GLUCOSE SERUM 102 mg/dL (74-106); MAGNESIUM 1.9 mg/dL (1.8-2.4); PHOSPHOROUS 1.8 mg/dL (2.5-4.9); PLATELET COUNT 281 x10^3mcL (130-400); SODIUM SERUM 151 mmol/L (136-145)
[2018-08-09 06:45] LABS: BASOPHIL % 0 % (0-2); RED CELL DISTRIBUTION WIDTH 16.7 % (11.5-14.5)
--- NOTE | 2018-08-09 07:17 | NUR ---
NOTIFIED BY SUB PLANT MANAGER HEART RATE IN 140'S. IN TO SEE PATIENT. O2 SAT 85 ON 5LNC. RR 30. PT PLACED ON NON REBREATHER. O2 SAT INCREASED TO 88. BP 162/77. DR TRINH AT BEDSIDE. ORDER RECEIVED FOR BIPAP. PT ENCOURAGED TO TAKE SLOW, DEEP BREATHS. HR CONTINUES IN 140'S. PT BREATHING COMFORTABLE ON BIPAP AT 98% O2 SAT. FAMILY NOTIFIED. CARE ENDORSED TO FRANK MARIE.
--- NOTE | 2018-08-09 07:42 | NUR ---
AT 0715 - RECEIVED PATIENT FROM NIGHT NURSE. PATIENT RESTING WITH EYES CLOSED. ON BIPAP AT IPAP 13, EPAP 6, RATE 36. O2 SAT 100%. CURRENT BP 1237/67 MAP 90. MONITOR SHOWING SVT; RATE 156. DR TRINH IS AWARE OF PATIENT'S TACHYCARDIA. IV INFUSING NS AT 70 ML/HR AT 0730 - PATIENT'S SON-IN-LAW AT BEDSIDE. UPDATED ON CONDITION. AT 0735 - SPOKE WITH PATIENT'S DAUGHTER PER PHONE. UPDATED ON PATIENT CONDITION. PATIENT HAS HAD A CHEST X-RAY. HR 140'S AT THIS TIME. AT 0740 - RECEIVED ORDERS FOR INSERTION OF THROVENT FOR PATIENT'S PNEUMOTHORAX. ER DOCTOR WILL PLACE TUBE.
--- NOTE | 2018-08-09 07:57 | NUR ---
WASTE MACHINE TENDER YOUSIF AT BEDSIDE SPEAKING WITH PATIENT'S SON-IN-LAW
--- NOTE | 2018-08-09 08:15 | NUR ---
PT TRANSFER FROM [facility] TO ICU 4 WITH [facility] DIRECTOR OF COMMUNITY EDUCATION FREYA LANE RN AND DR. VÁSQUEZ. PT IS NOT ABLE TO FOLLOW VERBAL COMMANDS OR GESTURE NEEDS PT IS LETHARGIC. MAX ASSISTS TO TRANSFER PT FROM BED TO BED. B/P 154/74 MAP 105 HR 140, TEMPT 97.9 AX, RR 30'S, 93% PO2SAT ON MAX 15L VIA NONREBREATHER. DR. VÁSQUEZ AND VADIM ACOSTA, [facility] RN, MYSELF AT BEDSIDE SETTING UP FOR INTUBATION. PER DR. VÁSQUEZ TO INTUBATE STAT. 0826 20MG ETOMIDATE IVP GIVEN 120/87 MAP 96 HR 140 93%PO2SAT. 0829 40MG SUCCINYLCHOLINE IVP GIVEN, HR 120, 92%PO2SAT. 0830 DR. VÁSQUEZ INTUBATED PT AT LL 24, ETT 7.5. PER DR. VÁSQUEZ TO ORDER VERSED IV , FENTANYL IV, K+PHOS 30MOL IV, AMIODARONE DRIP, TUBE FEEDING VITAL AF 1.2 10ML/HR ADVANCE Q4HRS FWF 50ML/ Q4HRS, GOAL FEED 35, INSERT OGT AND FOLY CATH. KUB TO CONFIRMED ETT OGT. ORDERS VERFIED NOTIFIED PAULA CARDENAS TO ENTER ORDERS.
--- NOTE | 2018-08-09 08:26 | NUR ---
AT 0810 - DR VÁSQUEZ AT BEDSIDE. SHE WILL INTYUBATE PATIENT. AT 0820 - PATIENT TRANSFERRED TO ICU AND REPORT GIVEN TO ICU NURSE
--- NOTE | 2018-08-09 09:00 | NUR ---
OGT INSERTED, AIR BOLUS PUSHED TO CONFIRMED PLACEMENT, LINE TAPED TO ETT. KUB ORDER TO CONFIRMED PLACEMENT. CARRASCO CATH INSERTED WITH PROPER TECHNIQUES.
--- NOTE | 2018-08-09 09:16 | NUR ---
AT 0902: HR WENT DOWN TO 42; THERESA MITCHELL WAS AT BEDSIDE VERBALLY ORDERED ATROPINE 1MG IVP. ATROPINE 1MG IVP WAS ADMINISTERED TO THE PATIENT. AT 0905: HR 47.
--- NOTE | 2018-08-09 09:25 | NUR ---
AMIODARONE BOLUS WAS INITIATED AND THEN AMIODARONE DRIP WAS INITIATED AT 1MG/MIN ORDERED.
--- NOTE | 2018-08-09 09:40 | NUR ---
MONITOR IS DOUBLE COUNTING HR SHOWS 36, PAULA HOME HEALTH PHYSICAL THERAPIST NOTIFIED. RT MAINE EKG AT BEDSIDE. PER EKG PT'S HR IS 111.
--- NOTE | 2018-08-09 09:50 | NUR ---
DR. HAMILTON DISCUSSED INDICATION CHANGE IN PT'S STATUS. BENIFITS, SUCH LAB DRAWL, MEDICATION DELIEVERY, RISKS SUCH BLEEDING, PNEUMOTHORAX. PT'S , DAUGHTER ALL AGREE TO PROCEDURE AND VERBALIZE UNDERSTANDING. ALL QUESTIONS AND CONCERNS ANSWERED.
--- NOTE | 2018-08-09 09:50 | NUR ---
PROVIDED PT'S STATUS UPDATES OF CXR RESULTS OF ETT 0.7CM ABOVE CIRILO AND DECREASED PNEUMOTHORAX 10% SINCE LAST EXAM. PER DR. VÁSQUEZ TO ORDER FOLLOW UP CXR AT 1400, PULL OUT ETT 1.5-2CM, LOWERED FIO2 FROM 100%- 50%FIO2, ABG IN AN HOUR AT 1050. FRANCO ACOSTA MADE AWARE.
--- NOTE | 2018-08-09 10:05 | NUR ---
THE PATIENT STARTED TO GET AGITATED; FAST BREATHING WITH RR>30S AND MOVED HIS ARMS. VERSED WAS INITIATED AT 0.25 MG/HR PER DR. VÁSQUEZ'S INSTRUCTION.
--- NOTE | 2018-08-09 10:10 | NUR ---
PER DR VILLASEÑOR INCREASED RR TO 16 DECREASE FIO2 TO 50%. PULLED BACK ETT TO 22CM LL. ABG TO FOLLOW, WILL CONTINUE TO MONITOR.
--- NOTE | 2018-08-09 10:23 | NUR ---
THE PATIENT REMAINED RESTLESS WITH FAST BREATHING RR>30S; FENTANYL DRIP WAS ININTIATED AT 0.25MCG/KG/HR DR. VÁSQUEZ'S INSTRUCTION.
--- NOTE | 2018-08-09 10:50 | NUR ---
CENTRAL LINE INSERTION IN PROGRESS [facility] IS NOT ABLE TO COLLECT ABG AT BEDSIDE.
--- NOTE | 2018-08-09 11:00 | NUR ---
FRANCO RT AT BEDSIDE TO PULL OUT ETT NEW LIP LINE AT 22.
--- NOTE | 2018-08-09 11:05 | NUR ---
AT 1055: DR. HAMILTON AT BEDSIDE PREPARING CENTRAL LINE PLACEMENT PROCEDURE. AT 1105: TIMEOUT IMPLEMENTED AT BEDSIDE FOR THE PROCEDURE.
--- NOTE | 2018-08-09 11:30 | NUR ---
FRANCO RT AT BEDSIDE TO PULL OUT ETT NEW LIP LINE AT 22.
--- NOTE | 2018-08-09 11:59 | NUR ---
CXR AT BEDSIDE TO CONFIRM LIJ PLACEMENT.
--- NOTE | 2018-08-09 12:15 | NUR ---
FRANCO ACOSTA AT BEDSIDE COLLECTING ABG. DR. VÁSQUEZ AT BEDSIDE ASSESSING PT.
--- NOTE | 2018-08-09 12:18 | NUR ---
DR. VÁSQUEZ SWITCHED OVER FROM V/C AC TO PCV/AC RATE 16, PRESSURE 14, PEEP 5, 50%FIO2, I TIME 1.2. PT TOLERATING 97%PO2SAT.
--- NOTE | 2018-08-09 12:30 | NUR ---
VITAL AF 1.2 AT 10ML/HR FWF 50ML/HR PER DIETARY ORDER.
--- NOTE | 2018-08-09 13:10 | NUR ---
MAP TRENDING IN 60'S BELOW 65 DR. VÁSQUEZ NOTIFIED. PER DR. GENAO OVER TELEPHONE TO GIVE 250ML/HR NS BOLUS AND IF MAP REMAINS BELOW 65 GIVE ANOTHER 250ML NS BOLUS TO ACHIEVE MAP ABOVE 65. WILL ENTER TELEPHONE ORDERS.
--- NOTE | 2018-08-09 13:25 | NUR ---
THE FIRST BOLUS OF NS 250ML WAS GIVEN TO THE PATIENT WITH BP 86/49 (62).
--- NOTE | 2018-08-09 13:29 | NUR ---
Initial Nutrition Assessment- IC04/A SI,RUSSELL IA HR Dx: Respiratory failure, hypoxia PMHx: CVA, HTN, HLD, Afib and BPH PSHx: PCI Labs: NA 151H, BUN 20H, CREAT 0.6L, P 1.8L, HGB 9.6L Meds: Colace, Lipitor, NS, zofran TF regimen: Vital AF 1.2 @ 10ml/hr, goal 35ml/hr, advance q4h, FWF 50ml Q4H. Provides 1000 kcal, 63g protein/day. TF Intake: Ht:175.26 cm (69") Wt:42.6 kg (94#) BMI: 13.9 kg/m2 (underweight) IBW:160# (73 kg) %IBW: 59 UBW: unable to access Age: 87/M Food Allergies: NKFA Skin: opifoam to coccyx area Yordan: 13 Edema: none GI: last BM 08/06 Per H&P, pt is a 87 year old male with past medical history CVA, COPD, Afib, HTN, HLD and BPH who was brought to the ED from [facility] with shortness of breath. Patient was actually discharged from [facility] on July [place], 2018 after being admitted for similar complaint. RDN visit(08/09): per RN Min OGT has been placed and TF Vital AF 1.2@ 10ml/hr has been started. Pt is severely underweight with BMI 13.9 kg/m2. During recent hospitalization pt was on puree diet with nectar thick liquid consistency. Problem with: N: no V: no D: no C: no Problems with: Chewing/Swallowing: yes Current appetite: poor Recent wt change: 12# in 1month %wt change: 13 (significant) Vitamin/Supplement use: unable to access Special diet at home: regular Physical activity: unable to access Education: No diet education was provided at this time as pt is on TF. Estimated Nutritional Needs Based on actual body weight 42.6 kg Energy: 0874-9019 kcal/d (32-35 kcal/kg-maintenance) Protein: 42.6- 51 g/d (1.0-1.2 g/kg)-maintenance and preservation of lean body mass Fluid: Per MD Nutrition Diagnosis 1. Malnutrition related to medical condition as evidenced by BMI 13.9 kg/m2. Intervention 1. Recommend increasing Vital AF 1.2 goal to 40ml/hr , advance q4h, FWF 50ml Q4H. Provides 1000 kcal, 63g protein/day. This meets >75% calorie and 100% protein needs. Monitor/Evaluate Goal: TF intake at least 75% of estimated needs Monitor: TF intake, Labs, GI function F/U in 2-3 days as high risk 08/11-
--- NOTE | 2018-08-09 13:50 | NUR ---
OGT DISPLACED, TUBE FEEDING STOPPED. OGT WAS ADVANCED, AIR BOLUS GIVEN, CONFIRMED PLACEMENT.OGT TAPED TO ETT. KUB ORDERED.
--- NOTE | 2018-08-09 14:28 | NUR ---
THE FIRST BOLUS COMPLETED: BP 99/54 (71).
--- NOTE | 2018-08-09 15:25 | NUR ---
AMIODARONE DRIP IS TITRATED FROM 1MG/MIN DOWN TO 0.5MG/MIN PER PROTOCOL. ALSO, FENTANYL DRIP TITRATED FROM 0.25MCG/KG/HR DOWN TO 0.125 MCG/KG/HR TO REACH THE GOAL OF RSS 4.
--- NOTE | 2018-08-09 17:03 | NUR ---
NOTIFIED DR. VÁSQUEZ CXR RESULTS ETT IS 0.7CM ABOVE CIRILO PER RESULTS. PER DR. VÁSQUEZ TO PULL ETT 1CM. FRANCO ACOSTA MADE AWARE.
--- NOTE | 2018-08-09 17:11 | NUR ---
FRANCO COLE AT BEDSIDE AND PULLED BACK ETT 1 MORE CM. ETT IS SECURED AT 21CM AT LIPLINE NOW. CXR WILL BE ORDERED TO RECHECK THE ETT PLACEMENT.
--- NOTE | 2018-08-09 17:26 | NUR ---
BUTCHER'S ASSISTANT IS AT BEDSIDE FOR CXR.
--- NOTE | 2018-08-09 18:14 | NUR ---
DR. THAKUR AT BEDSIDE DISCUSSING HD OPTIONS WITH FAMILY AND PT AT BEDSIDE. PER MD TO MONITOR NA LEVEL AND CREAT BUN Q6HRS AND TO CONTINUE TO MONITOR.
--- NOTE | 2018-08-09 18:19 | NUR ---
DR. HAMILTON GAVE OKAY TO USE OGT, TUBE FEEDING RESUME AT 10ML/HR FWF 50ML Q[address]HRS. NOTIFIED DR. VÁSQUEZ ETT IS 14MM ABOVE CIRILO, RECIEVED NO NEW ORDERS.
--- NOTE | 2018-08-09 18:41 | NUR ---
THE PATIENT REMAINED ON VENT VIA PRESSURE CONTROL WITH: RATE 16, PRESSURE 14, PEEP 3, AND FIO2 50%. PATIENT REMAINS ON AMIODARONE DRIP AT 0.5MG/MIN, FENTANYL AT 0.125MCG/KG/HR AND VERSED AT 0.125MG/HR. TUBE FEEDING OF VITAL AF 1.2 AT 10CC/HR AND FREE WATER FLUSH AT 50CC EVERY 4HR. THE FAMILY IS AT BEDSIDE WITH THE PATIENT.
--- NOTE | 2018-08-09 19:30 | NUR ---
RECEIVED REPORT FROM FRANK LANCE. PT IS ALERT AND RESPONSIVE TO PAINFUL STIMULUS. PT IS INTUBATED AND SEDATED ON FENTANYL 0.126 MCG/KG/HR AND VERSED 0.122 MG/HR. 7.5 ETT AT 21 CM AT LL. OGT PATENT, AND INTACT. VENT SETTINGS INCLUDE RATE: 16, PRESSURE: 14, O2: 50%, PEEP: 3. LUNG SOUNDS CLEAR TO BILATERAL UPPER LOBES, DIMINISHED TO BILATERAL LOWER LOBES. S1 S2 HEART SOUNDS AUSCULTATED. SINUS TACHYCARDIA. PUPILS 3 MM AND SLUGGISH BILATERALLY. ABD IS SOFT AND FLAT WITH HYPOACTIVE BOWEL SOUNDS X4Q. VITAL AF INFUSING AT 10 ML/HR WITH 10 ML OF RESIDUAL. CARRASCO DRAINING VIA GRAVITY. URINE IS YELLOW WITH FAIR OUTPUT. LIJ, RIGHT FA, AND RIGHT WRIST IV PATENT, DRESSIING CDI. NS INFUSING AT 70 ML/HR, AMIODARONE INFUSING AT 0.5 MG/MIN. ALL QUESTIONS AND CONCERNS ANSWERED. FAMILY AT BEDSIDE.
--- NOTE | 2018-08-09 21:00 | NUR ---
PT APPEARING AGITATED AND SETTING OFF VENTILATOR. FENTANYL TITRATED FROM 0.126 MCG/KG/HR TO 0.5 MCG/KG/HR AND VERSED TITRATED FROM 0.122 MG/HR TO 0.3 MG/HR. PT O2 SAT DECREASING, CALLED RT. DANIELLE
--- NOTE | 2018-08-09 21:30 | NUR ---
DANIELLE ACOSTA AT BEDSIDE. TITRATED FIO2 FROM 50% TO 80%, PT NOW AT A SATURATION OF 100%.
--- NOTE | 2018-08-09 22:00 | NUR ---
NOTIFIED DR. GU OF LOW BP. SHE ORDERED NS AT 250 AN HOUR, BUT SODIUM IS HIGH. MADE HER AWARE OF NORMAL LAB, SHE ORDERED 1000 ML BOLUS OF D5 1/4 NS, WILL FOLLOW THROUGH WITH ORDER. WILL CONTINUE TO MONITOR BP.
--- NOTE | 2018-08-09 22:30 | NUR ---
PHARMACY CALLED AND STATED THAT BOLUS THAT WAS ORDERED BY DR. GU WILL NOT BE VALIDATED BECAUSE SHE DOES NOT FEEL COMFORTABLE WITH THE ORDER. PHARMACIST CALLED DR. GU, AND WAS D/C'D. ALREADY INFUSED ABOUT 500 ML, I TURNED IT OFF. WILL INITIATE LEVOPHED WHEN ORDERED.
--- NOTE | 2018-08-09 23:32 | NUR ---
TITRATED FENTANYL FROM 0.5 MCG/KG/HR TO 0.3 MCG/KG/HR FOR DECREASED BP. PT APPEARS TO BE CALM.
[2018-08-10] VITALS (11 sets, daily range): BP systolic 87–115; BP diastolic 40–57
--- NOTE | 2018-08-10 00:44 | NUR ---
TITRATED FENT TO 0.1 MCG/KG/HR AND VERSED TO 0.1 MG/HR FOR DECREASED BP, AND PT NO LONGER AGITATED.
--- NOTE | 2018-08-10 01:55 | NUR ---
INITIATED LEVOPHED AT 2 MCG/MIN FOR MAP < 65.
--- NOTE | 2018-08-10 02:30 | NUR ---
DANIELLE, RT DECREASED FIO2 TO 60%. PT TOLERATING WELL.
[2018-08-10 05:06] LABS: CALCIUM 7.7 mg/dL (8.5-10.1); CARBON DIOXIDE 29.5 mmol/L (21-32); CHLORIDE SERUM 113 mmol/L (98-107); CREATININE SERUM 0.8 mg/dL (0.7-1.3); GLUCOSE SERUM 284 mg/dL (74-106); MAGNESIUM 1.7 mg/dL (1.8-2.4); SODIUM SERUM 146 mmol/L (136-145)
[2018-08-10 05:12] LABS: PLATELET COUNT 206 x10^3mcL (130-400)
--- NOTE | 2018-08-10 05:37 | NUR ---
FULL BED BATH, VAP CARE, AND CARRASCO CARE PROVIDED. PT TOLERATED WELL. ALL LINES, AND SUCTION TUBING CHANGED.
[2018-08-10 05:50] LABS: RED CELL DISTRIBUTION WIDTH 16.4 % (11.5-14.5)
[2018-08-10 05:51] LABS: BASOPHIL % 0 % (0-2)
--- NOTE | 2018-08-10 07:20 | NUR ---
RESUME CARE: PATIENT REMAINS INTUBATED AND SEDATED WITH FENTANYL 0.1MCG/KG/H AND VERSED 0.1MG/HR (SEDATION WAS HELD FOR 10 MINUTES EARLIER: THE PATIENT'S RR INCREASED UP TO 20S. SEDATION WAS RESUMED). PATIENT RESPONSIVE TO TACTILE STIMULI BUT UNABLE TO FOLLOW ANY SIMPLE COMMANDS. MARY PUPILS WITH SLUGGISH REACTION TO LIGHT. ETT 7.5 SECURED AT 21 CM AT LIPLINE. ETT CONNECTED TO VENT VIA PRESSURE MODE: FIO2 60%, RATE 16, PRESSURE 14, AND PEEP 3. OGT IN PLACE AND SECURED TO ETT. OGT PLACEMENT IS VERIFIED WITH SOME AIR BOLUS. NO RESIDUAL AT THIS TIME. OGT CONNECTED TO TUBE FEEDING WITH VITAL AF 1.2 AT 35CC/HR. FREE WATER FLUSH AT 50CC EVERY 4HR. CVC AT LEFT IJ WITH DRESSING IN PLACE. NS AT 70CC/HR. AMIODARONE DRIP AT 0.3 MG/MIN. LEVEPHED AT 2MCG/MIN. OTHER 2 IV SITES TO RFA WITH DRESSING INTACT. CARRASCO CATH TO GRAVITY DRAINING YELLOW URINE. HEEL PROTECTORS TO BOTH HEELS. PATIENT IS ON AIR MATTRESS. CALL LIGHT WITHIN REACH. BED AT LOWEST POSTION. HEAD OF BED AND BOTH BLE ELEVATED.
--- NOTE | 2018-08-10 07:25 | NUR ---
THERESA MITCHELL CAME TO BEDSIDE TO SEE THE PATIENT. UPDATE PROVIDED TO PAULA. ALSO, PAULA WAS MADE AWARE THAT THE PATIENT HAD TRACE EDEMA TO BUE/BLE.
--- NOTE | 2018-08-10 07:58 | NUR ---
PROVIDED UPDATES TO DR. VÁSQUEZ PER DR. VÁSQUEZ TO START CVP. MADE AWARE TO PRIMARY RN NATALIO.
--- NOTE | 2018-08-10 08:10 | NUR ---
CVP IS SET UP AT THIS TIME WITH CVP 6.
--- NOTE | 2018-08-10 08:26 | NUR ---
RT TECH IS AT BEDSIDE TITRATING FIO2 OF VENT FROM 60% DOWN TO 50%.
--- NOTE | 2018-08-10 08:30 | NUR ---
BP 122/56 (80); LEVEPHED WAS TITRATED FROM 2MCG/MIN DOWN TO 1MCG/MIN.
--- NOTE | 2018-08-10 09:30 | NUR ---
AMIODARONE DRIP IS DISCONTINUED PER THERESA MITCHELL'S VERBAL ORDER. AMIODARONE 100MG PO WAS MEDICATED TO THE PATIENT AT 0824 AM.
--- NOTE | 2018-08-10 09:50 | NUR ---
DR. ARZATE AND RESIDENT S AT ROUND. PROVIDED PT STATUS UPDATES. MADE AWARE TO DIGOXIN LEVL 0.83, MAG 1.7. PER MD MAG WILL BE ORDERED AND CONTINUE TO MONITOR PT. AWAIITING FOR ORDERS.
--- NOTE | 2018-08-10 11:17 | NUR ---
B/P 80/42 MAP 56 GR 87 INCREASED LEVOPHED FROM 1MCG/KG/MIN TO 3MCG/KG/MIN TO ACHIEVEN MAP 65.
--- NOTE | 2018-08-10 12:30 | NUR ---
RT FREDA TITRATED VENT FIO2 FROM 50% TO 40%.
--- NOTE | 2018-08-10 14:18 | NUR ---
B/P 100/48 MAP 70 HR 94 LOWERED LEVOPHED FROM 3MCG/KG/MIN TO 1MCG/KG/MIN TO ACHIEVE MAP 65.
--- NOTE | 2018-08-10 15:13 | NUR ---
DR. VÁSQUEZ ADJUSTED THE VENT SETTING: PRESSURE TO 16. THE PATIENT HAS AGONAL BREATHING WITH RR UP TO 30; DR. VÁSQUEZ INSTRUCTED TO INCREASE FENTANYL FROM 0.1 MCG/KG/HR TO 0.25 MCG/KG/HR AND VERSED FROM 0.1MG/HR TO 0.25MG/HR.
--- NOTE | 2018-08-10 16:35 | NUR ---
PAULA SEXUAL HEALTH PHYSICIAN NOTIFIED OF PT'S O2SAT DECREAESING TO 70%PO2SAT ON 100%FIO2.
--- NOTE | 2018-08-10 16:35 | NUR ---
PATIENT O2 SAT DROPPED DOWN TO 70S; CYRELLI RT INCREASED FIO2 FROM 40% TO 100%.
--- NOTE | 2018-08-10 16:40 | NUR ---
THERESA MITCHELL IS AT BEDSIDE EXPLAINING THE CHANGE OF THE PATIENT'S CONDITION AND DISCUSSING THE PATIENT'S STATUS WITH THE FAMILY INCLUDING THE AND 2 DAUGHTERS.
--- NOTE | 2018-08-10 16:54 | NUR ---
THE PATIENT WAS EXTUBATED WITH PALLIATIVE CARE.
--- NOTE | 2018-08-10 16:56 | NUR ---
THE MONITOR READING ASYSTOLE; THERESA MITCHELL CAME TO BEDSIDE AND CHECKED THE PATIENT AND PRONOUNCED THE AT THIS TIME.
--- NOTE | 2018-08-10 17:31 | NUR ---
AT 1702: MEDICAL SERVICES ASSISTANT LADY ALEJANDRO ZARAGOZA NOTIFIED OF THE PATIENT'S . AT 1703: [facility] WAS CALLED; KADIE ANSWERED THE PHONE AND NOTIFIED OF THE PATIENT'S . . AT 1703: POWER SYSTEM OPERATOR WAS CALLED AND AWAITING FOR CALL BACK. AT 1717: ADMITTING NOTIFIED OF WITH
--- NOTE | 2018-08-10 18:05 | NUR ---
MACHINE SETTER MORGAN NEGRON CALLED BACK; CHARGE NURSE ANASTASIA ANSWERED THE PHONE AND PROVIDED THE PATIENT'S INFORMATION TO MORGAN. THE CASE IS RELEASED WITH .
--- NOTE | 2018-08-10 22:57 | NUR ---
PT FAMILY @ BEDSIDE. RECIEVED CLOTHING FOR PT DRESSING AFTER CLEANING. AGREED UPON CLEANING PT AT 0130 ABLE TO TOUCH AND DRESS PT.
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
== END 2018-08-11 00:15 | disposition expired | DRG 871 ==
LOC: ED 02:54 → DU 05:41 → IC 08-09 08:14
PROVIDERS: Emergency Medicine; Internal Medicine; ADMIT Family Medicine
PROC: 5A1945Z Respiratory Ventilation, 24-96 Consecutive Hours (ICD-10-PCS; principal; 2018-08-09)
PROC: 0BH17EZ Insertion of Endotracheal Airway into Trachea, Via Natural or Artificial Opening (ICD-10-PCS; 2018-08-09)
PROC: 05HN33Z Insertion of Infusion Device into Left Internal Jugular Vein, Percutaneous Approach (ICD-10-PCS; 2018-08-09)
PROC: B544ZZA Ultrasonography of Left Jugular Veins, Guidance (ICD-10-PCS; 2018-08-09)
DX: A41.9 Sepsis, unspecified organism (principal); J69.0 Pneumonitis due to inhalation of food and vomit; J96.01 Acute respiratory failure with hypoxia; E43 Unspecified severe protein-calorie malnutrition; N17.0 Acute kidney failure with tubular necrosis; J44.1 Chronic obstructive pulmonary disease with (acute) exacerbation; Z68.1 Body mass index [BMI] 19.9 or less, adult; J93.12 Secondary spontaneous pneumothorax; E87.1 Hypo-osmolality and hyponatremia; J84.10 Pulmonary fibrosis, unspecified; I10 Essential (primary) hypertension; N40.0 Benign prostatic hyperplasia without lower urinary tract symptoms; E78.5 Hyperlipidemia, unspecified; I48.91 Unspecified atrial fibrillation; Z66 Do not resuscitate; Z74.01 Bed confinement status; Z51.5 Encounter for palliative care; Z79.01 Long term (current) use of anticoagulants; Z86.73 Personal history of transient ischemic attack (TIA), and cerebral infarction without residual deficits
CPT/HCPCS: 31500; 36556; 36600; 83880; 92526-GN; 92610; 92611-GN; 94150; A4628; J0282; J0360; J1642; J1956; J2250; J2270; J2543; J2920; J3010; J3475; J3480; J3490; J7030; J7040; J7620; J7633; Q0092